=== PATIENT | male | born 1940 | race Caucasian/White ===

== ENCOUNTER 2016-06-02 11:15 | Emergency (ER) | payer MEDICARE ==
[2016-06-02 11:33] VITALS: TEMP 98.9; BMI 18.9
--- NOTE | 2016-06-02 11:44 | EDPRACDOC ---
- General Information Information Source: Patient Mode of Arrival: Car - History of Present Illness Onset: ongoing HPI: PT BROUGHT FROM HOME FOR RIGHT HAND/WRIST SWELLING. PT HAD FRACTURE AND HARDWARE PLACED IN MARCH. HAS HAD OPENED DUE TO INFECTION. POSSIBLE PLACEMENT. HYDROCODONE NOT HELPING WITH PAIN. PT LIVES WITH HIS . PT HAS PAIN MOSTLY IN FEET. SAW ORTHO WED, HAD SOME LESION OPENED BY ORTHO ON WRIST AT THAT VISIT. <Kristopher Vann - Last Filed: 06/02/16 16:11> <Peggy Brown - Last Filed: 06/02/16 17:54> - General Information Chief Complaint: Generalized Weakness Stated Complaint: INFECTION CONTROL Time Seen by Provider: 06/02/16 11:27 Home Medications: Home Medications Amlodipine [Norvasc] 10 mg PO DAILY 01/19/14 Aspirin 81 mg PO DAILY 01/19/14 Cholecalciferol (Vitamin D3) [Vitamin D] 1,000 unit PO DAILY 01/19/14 Clopidogrel Bisulfate [Plavix] 75 mg PO DAILY 01/19/14 Docusate Sodium [Stool Softener] 100 mg PO DAILY PRN 01/19/14 Linagliptin [Tradjenta] 5 mg PO DAILY 01/19/14 Losartan Potassium 100 mg PO DAILY 01/19/14 Omeprazole [Prilosec] 20 mg PO DAILY 01/19/14 Pioglitazone HCl [Actos] 45 mg PO DAILY 01/19/14 Acetaminophen [Tylenol Extra Strength] 500 mg PO DAILY PRN 06/03/14 Sulfamethoxazole/Trimethoprim [Bactrim Ds Tablet] 1 tab PO BID 06/02/16 Tramadol HCl [Ultram] 50 - 100 mg PO Q6 #15 tablet 06/02/16 Allergies/Adverse Reactions: Allergies Allergy/AdvReac Type Severity Reaction Status Date / Time No Known Allergies Allergy Verified 06/02/16 11:45 ED Past Medical History - History Reviewed Yes Nurses notes reviewed and agree except as marked - Patient Medical History Neurological History: Reports: Cerebrovascular Accident (10/1997, LEFT SIDE WEAKNESS, [place]) Cardiac History: Reports: Hypertension GI/ History: Reports: Kidney Stones Psychological History: Denies: Depression Systemic History: Reports: Anemia (IRON DEFICIENCY), Diabetes. Denies: Cancer - Family Medical History Reports: Hypertension (SISTER MOTHER), Diabetes (MOTHER). Denies: Cancer, Stroke, Cardiac Disorders - Social Medical History Smoking Status: Former smoker <VannKristopher - Last Filed: 06/02/16 16:11> EDM Review of Systems - Review of Systems ROS Negative Except as Marked: Yes All systems reviewed and were negative except as marked <VannKristopher - Last Filed: 06/02/16 16:11> - Physical Exam Constitutional: Alert (Awake), No apparent distress Oriented to: Time, Person, Place Last recorded Vital Signs: Last Vital Signs Temp 98.9 F 06/02/16 11:23 Pulse 71 06/02/16 11:23 Resp 18 06/02/16 11:23 BP 148/70 06/02/16 11:23 Pulse Ox 95 06/02/16 11:23 Oxygen Pulse Oxygen Saturation 95 O2 Device Room Air Oxygen Flow Rate Fraction of Inspired Oxygen ( FIO2) - HEENT Head: Normal ( normocephalic) Eye Exam: Normal (PERRL, EOMI, Sclera white) Oropharynx: Normal (Pharynx:Moist without exudate,Gums-no swelling) Nose: No Symptoms Reported (septum midline) Neck: Normal (FROM, trachea at midline) - Respiratory/Cardiovascular Respiratory: Normal - CTA (BBS clear to auscultation without adventitious sounds ) Cardiovascular: Normal (RRR without murmur, gallop or rub) - GI Auscultation: Normal (NABS) Palpation: Normal (Soft,No rebound or guarding, non distended) Tenderness: Non tender Espnioza's Sign: Negative - Musculoskeletal Back: Normal (Non-Tender) Extremities: Normal (Normal tone, Pulses 2+ No cyanosis or edema, FROM), Other ( RIGHT WRIST, HAND.) - Integumentary Skin: Normal, Warm, Dry, Other (SMALL ULCERATIONS TIP OF LEFT GREAT TOE, B/L HEELS. NO SACRAL DECUBITUS ULCERS SEEN. MILD SACRAL ERYTHEMA.) Lymphatics: Normal (no adenopathy) - Neurologic Memory Impaired: Normal Motor Function: Normal (Normal tone, Pulses 2+ No cyanosis or edema, FROM) Cranial Nerve: Normal (CN II-X11 intact sensation, strength 5/5) Cerebellar: Normal Mood Description: Normal Perception: Normal <Kristopher Vann - Last Filed: 06/02/16 16:11> - Physical Exam Last recorded Vital Signs: Last Vital Signs Temp 98.9 F 06/02/16 11:23 Pulse 64 06/02/16 14:49 Resp 18 06/02/16 14:49 BP 121/59 L 06/02/16 14:49 Pulse Ox 93 06/02/16 14:49 Oxygen Pulse Oxygen Saturation 93 O2 Device Room Air Oxygen Flow Rate Fraction of Inspired Oxygen ( FIO2) <Peggy Brown - Last Filed: 06/02/16 17:54> - Results 06/02/16 11:29 06/02/16 11:29 - Additional Information fluctuant soft tissue right lateral ulnar. i do not want to place needle or break skin due to hardware. emphasized to family need for f/u early next week. has ortho apptmnt wed. daughter texting ortho now. <Kristopher Vann - Last Filed: 06/02/16 16:11> - Re-evaluation Re-evaluation 3 Re-evaluation Time: 17:52 CARE LINK TRANSPORT TEAM ARRIVED. PATIENT NO COMPLAINTS. JUST ATE A HOT DOG. VS REVIEWED AND ARE NORMAL. PT ALERT AND INTERACTIVE. SKIN WARM AND WELL PERFUSED, DP 2+ MO PT STABLE FOR CRITICAL CARE UNIT TRANSFER. - Results 06/02/16 11:29 06/02/16 11:29 WBC 6.7 xk/uL (3.8-10.8) 06/02/16 11:29 RBC 3.50 xM/uL (4.70-6.10) L 06/02/16 11:29 Hgb 9.3 g/dL (14.0-18.0) L 06/02/16 11:29 Hct 29.7 % (42-52) L 06/02/16 11:29 MCV 85 fL (80-94) 06/02/16 11:29 MCH 26.5 pg (27-32) L 06/02/16 11:29 MCHC 31.2 g/dl (33-36) L 06/02/16 11:29 RDW 19.4 % (11.5-14.5) H 06/02/16 11:29 Plt Count 260 xk/uL (130-400) 06/02/16 11:29 MPV 8.6 fL (7.4-10.4) 06/02/16 11:29 Neut % (Auto) 76.4 % (45-76) H 06/02/16 11:29 Lymph % (Auto) 14.3 % (17-44) L 06/02/16 11:29 [place] % (Auto) 5.6 % (3-10) 06/02/16 11:29 Eos % (Auto) 3.2 % (0-5) 06/02/16 11:29 Baso % (Auto) 0.5 % (0-2) 06/02/16 11:29 Absolute Neuts (auto) 5.09 xk/uL (1.7-8.2) 06/02/16 11:29 Absolute Lymphs (auto) 0.94 xk/uL (0.65-4.75) 06/02/16 11:29 Sodium 139 mEq/L (137-146) 06/02/16 11:29 Potassium 4.6 mEq/L (3.5-5.1) 06/02/16 11:29 Chloride 104 mEq/L (98-107) 06/02/16 11:29 Carbon Dioxide 24 mMOL/L (22-33) 06/02/16 11:29 Anion Gap 16 mEq/L (8-16) 06/02/16 11:29 BUN 31 MG/DL (9-20) H 06/02/16 11:29 Creatinine 1.40 MG/DL (0.66-1.25) H 06/02/16 11:29 Estimated GFR (MDRD) 49 mL/min (>=60) L 06/02/16 11:29 Glucose 126 mg/dL (70-99) H 06/02/16 11:29 Calculated Osmolality 277 MOs/Kg (270-290) 06/02/16 11:29 Calcium 9.2 MG/DL (8.4-10.2) 06/02/16 11:29 Corrected Calcium 9.7 MG/DL (8.4-10.2) 06/02/16 11:29 Total Bilirubin 0.4 MG/DL (0.2-1.3) 06/02/16 11:29 AST 23 IU/L (17-59) 06/02/16 11:29 ALT 23 IU/L (21-72) 06/02/16 11:29 Alkaline Phosphatase 70 IU/L (50-160) 06/02/16 11:29 Troponin I < 0.01 ng/mL (<.04) 06/02/16 11:29 C-Reactive Prot, Quant 94.3 mg/L (<10.0) H 06/02/16 11:29 Total Protein 7.2 G/DL (6.3-8.2) 06/02/16 11:29 Albumin 3.5 G/DL (3.5-5.0) 06/02/16 11:29 Urine Color Yellow 06/02/16 13:20 Urine Clarity Clear 06/02/16 13:20 Urine pH 5.0 (5.0-8.0) 06/02/16 13:20 Ur Specific [place] 1.015 (1.003-1.035) 06/02/16 13:20 Urine Protein Neg (NEG/TRACE) 06/02/16 13:20 Urine Glucose (UA) Neg (NEGATIVE) 06/02/16 13:20 Urine Ketones Neg (NEGATIVE) 06/02/16 13:20 Urine Occult Blood 1+ (NEG/TRACE) H 06/02/16 13:20 Urine Nitrite Neg (NEGATIVE) 06/02/16 13:20 Urine Bilirubin Neg (NEGATIVE) 06/02/16 13:20 Urine Urobilinogen <2.0 MG/DL (0-1) 06/02/16 13:20 Ur Leukocyte Esterase Neg (NEGATIVE) 06/02/16 13:20 Urine RBC 0-2 (0-2) 06/02/16 13:20 Urine WBC 0-2 (0-2) 06/02/16 13:20 Ur Epithelial Cells Occ 06/02/16 13:20 Urine Bacteria Few (NEG/FEW) 06/02/16 13:20 Hyaline Casts 2-5 (0-2) H 06/02/16 13:20 Urine Mucus Occ (NEG/OCC) 06/02/16 13:20 Lab Results 06/02/16 06/02/16 06/02/16 13:20 11:29 11:29 WBC 6.7 RBC 3.50 L Hgb 9.3 L Hct 29.7 L MCV 85 MCH 26.5 L MCHC 31.2 L RDW 19.4 H Plt Count 260 MPV 8.6 Neut % (Auto) 76.4 H Lymph % (Auto) 14.3 L [place] % (Auto) 5.6 Eos % (Auto) 3.2 Baso % (Auto) 0.5 Absolute Neuts (auto) 5.09 Absolute Lymphs (auto) 0.94 Sodium Potassium Chloride Carbon Dioxide Anion Gap BUN Creatinine Estimated GFR (MDRD) Glucose Calculated Osmolality Calcium Corrected Calcium Total Bilirubin AST ALT Alkaline Phosphatase Troponin I C-Reactive Prot, Quant 94.3 H Total Protein Albumin Urine Color Yellow Urine Clarity Clear Urine pH 5.0 Ur Specific [place] 1.015 Urine Protein Neg Urine Glucose (UA) Neg Urine Ketones Neg Urine Occult Blood 1+ H Urine Nitrite Neg Urine Bilirubin Neg Urine Urobilinogen <2.0 Ur Leukocyte Esterase Neg Urine RBC 0-2 Urine WBC 0-2 Ur Epithelial Cells Occ Urine Bacteria Few Hyaline Casts 2-5 H Urine Mucus Occ 06/02/16 11:29 WBC RBC Hgb Hct MCV MCH MCHC RDW Plt Count MPV Neut % (Auto) Lymph % (Auto) [place] % (Auto) Eos % (Auto) Baso % (Auto) Absolute Neuts (auto) Absolute Lymphs (auto) Sodium 139 Potassium 4.6 Chloride 104 Carbon Dioxide 24 Anion Gap 16 BUN 31 H Creatinine 1.40 H Estimated GFR (MDRD) 49 L Glucose 126 H Calculated Osmolality 277 Calcium 9.2 Corrected Calcium 9.7 Total Bilirubin 0.4 AST 23 ALT 23 Alkaline Phosphatase 70 Troponin I < 0.01 C-Reactive Prot, Quant Total Protein 7.2 Albumin 3.5 Urine Color Urine Clarity Urine pH Ur Specific [place] Urine Protein Urine Glucose (UA) Urine Ketones Urine Occult Blood Urine Nitrite Urine Bilirubin Urine Urobilinogen Ur Leukocyte Esterase Urine RBC Urine WBC Ur Epithelial Cells Urine Bacteria Hyaline Casts Urine Mucus <Peggy Brown - Last Filed: 06/02/16 17:54> ED Critical Care Note - Critical Care Note Total Time (mins): 30 Comments: Due to the presence of and / or the risk of deterioration, my attendance to this patient required critical care time, including assessment/reassessment, documentation, ordering and interpreting ancillary studies, discussion with ED staff and consultants,patient and family, and excludes time spent on separately billable procedures. <Kristopher Vann - Last Filed: 06/02/16 16:11> - Departure Yes I personally saw and evaluated the patient. Disposition: Trans. to Other Hospital ([facility]) Education/Counseling Given To: Patient, Family Member Education/Counseling Given Regarding: Diagnosis Decision to Transfer Time: 16:17 (dr more accepts transfer to [facility]. 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 Instructions: Weakness (ED) Prescriptions: New Tramadol HCl [Ultram] 50 - 100 mg PO Q6 #15 tablet No Action Omeprazole [Prilosec] 20 mg PO DAILY Pioglitazone HCl [Actos] 45 mg PO DAILY Amlodipine [Norvasc] 10 mg PO DAILY Cholecalciferol (Vitamin D3) [Vitamin D] 1,000 unit PO DAILY Aspirin 81 mg PO DAILY Linagliptin [Tradjenta] 5 mg PO DAILY Clopidogrel Bisulfate [Plavix] 75 mg PO DAILY Losartan Potassium 100 mg PO DAILY Docusate Sodium [Stool Softener] 100 mg PO DAILY PRN PRN Reason: Constipation Acetaminophen [Tylenol Extra Strength] 500 mg PO DAILY PRN PRN Reason: Pain Sulfamethoxazole/Trimethoprim [Bactrim Ds Tablet] 1 tab PO BID Additional Instructions: YOU WILL NEED ORTHO FOLLOWUP NEXT WEEK IN [place] FOR EVALUATION OF RIGHT WRIST.
[2016-06-02 11:55] LABS: AUTOMATED BASOPHIL 0.5 % (0-2); AUTOMATED EOSINOPHIL 3.2 % (0-5); AUTOMATED LYMPH 14.3 % (17-44); AUTOMATED MONOCYTE 5.6 % (3-10); AUTOMATED NEUTROPHIL 76.4 % (45-76); MPV 8.6 fL (7.4-10.4)
[2016-06-02 12:06] LABS: BLOOD UREA NITROGEN 31 MG/DL (9-20); CALC CORRECTED 9.7 MG/DL (8.4-10.2); CALCIUM 9.2 MG/DL (8.4-10.2); CALCULATED OSMOLALITY 277 MOs/Kg (270-290); CHLORIDE 104 mEq/L (98-107); GLUCOSE 126 mg/dL (70-99); SODIUM LEVEL 139 mEq/L (137-146); TOTAL PROTEIN 7.2 G/DL (6.3-8.2)
--- NOTE | 2016-06-02 12:49 | DIRPT ---
CLINICAL DATA: Previous right wrist ORIF EXAM: RIGHT WRIST - COMPLETE 3+ VIEW COMPARISON: 04/12/2016 FINDINGS: Previous ORIF of the right distal radius and ulna fractures with plate and screw fixation. Mild diffuse soft tissue swelling. Fracture lines remain visible. Bones are osteopenic. Distal ulna fragment appears displaced from the fixation hardware ventrally. There is residual ventral angulation of the distal radius fracture as well. Mild surrounding periostitis about the distal ulna and radius. Open wound suspected along the distal wrist ulnar aspect. IMPRESSION: Previous ORIF for the right distal radius and ulna fractures. Right distal ulna fragment appears disassociated from the fixation hardware with significant ventral displacement. There is also a residual ventral angulation of the radius fracture. Overlying soft tissue swelling noted. Difficult to exclude developing osteomyelitis. Bones are osteopenic Electronically Signed By: Brodie Tong M.D. On: 06/02/2016 12:46
--- NOTE | 2016-06-02 13:05 | DIRPT ---
CLINICAL DATA: Weakness EXAM: CHEST 1 VIEW COMPARISON: 06/22/2008 FINDINGS: The heart size and mediastinal contours are within normal limits. Both lungs are clear. The visualized skeletal structures are unremarkable. IMPRESSION: No active disease. Electronically Signed By: Adriano Swift M.D. On: 06/02/2016 13:02
[2016-06-02] MEDS ORDERED: TRAMADOL HCL 50 MG TAB PO ONE (13:26)
[2016-06-02 13:41] LABS: LEUKOCYTES/URINE NEG (NEGATIVE); NITRITE/URINE NEG (NEGATIVE); RBC/URINE 0-2 (0-2); URINE OCCULT BLOOD 1+ (NEG/TRACE); WBC/URINE 0-2 (0-2)
[2016-06-02 17:58] VITALS: BP 154/70; PULSE 73
== END 2016-06-02 17:44 | disposition home or self-care (01) ==
LOC: ED 11:15
DX: L97.401 Non-pressure chronic ulcer of unspecified heel and midfoot limited to breakdown of skin (principal); M25.431 Effusion, right wrist
CPT/HCPCS: 36415; 71010; 73110; 80053; 81001; 82962; 84484; 85025; 86140; 96365; 99284; A9270; J3370; J7060; J3490